=== PATIENT | female | born 1955 | race Caucasian/White ===

== ENCOUNTER 2019-02-02 06:28 | Day surgery (SDC) | payer MEDICARE, MEDICAID, SELFPAY ==
[2019-02-02] VITALS (7 sets, daily range): BP systolic 97–128; BP diastolic 46–70; PULSE 68–77; RESP 10–16; TEMP 36.6–37.6; O2SAT 95–97; BMI 37.7
--- NOTE | 2019-02-02 | PATH_ITS ---
[facility] Accession Number: [id number] . 01 Material submitted: . PART A: colon - 2MM CECAL POLYP PART B: body - HYPERPLASTIC POLYP AT 45CM PART C: body - HYPERPLASTIC POLYP AT 35CM . 02 Diagnosis: A. 2 mm Cecal Polyp: Tubular adenoma. . B. Hyperplastic Polyp at 45 cm: Hyperplastic polyp. . C. Hyperplastic Polyp at 35 cm: Hyperplastic polyp. MRV 02/05/2019 1505 Local . 02 Electronically signed: . Peggy Francis MD, Pathologist NPI- [id number] . 01 Gross description: . Part A: 2MM CECAL POLYP: Received in formalin is 1 fragment(s) of thomas, soft tissue measuring 0.1 x 0.01 x 0.01 cm submitted entirely in 1 cassette(s) Part B: HYPERPLASTIC POLYP AT 45CM: Received in formalin is 1 fragment(s) of thomas, soft tissue measuring 0.3 x 0.2 x 0.2 cm submitted entirely in 1 cassette(s) Part C: HYPERPLASTIC POLYP AT 35CM: Received in formalin is 1 fragment(s) of thomas, soft tissue measuring 0.2 x 0.1 x 0.1 cm submitted entirely in 1 cassette(s) /QBJ 02/05/2019 1507 Local . 02 Pathologist provided ICD-10: K63.5, Z12.11 . 02 CPT . 603455, 933342, [id number] Performed at: 01 [facility] [address] [place] [address], [place], [place] [id number] MD Forrest Bass MD Phone: [phone] [facility]formed [facility]: [facility] [address] [place], [place] [id number] MD Nancy Boswell MD Phone: [phone]
[2019-02-02] MEDS: SODIUM CHLORIDE 0.9% 1,000 ML 200 ML IV (06:45)
--- NOTE | 2019-02-02 07:41 | P.HP_ITS ---
History of Present Illness History of Present Illness Date Patient Seen: 02/02/19 Time Patient Seen: 07:41 Chief complaint: [id number] Narrative: This is a 63-year-old woman who is 10 years out from her initial screening colonoscopy. She has a history of gastric bypass, obesity, diabetes, hypertension, and multiple allergies. She denies any personal history of colon polyps, colon cancer, melena, hematochezia, or other related symptoms. She does have significant acid reflux, for which she has been recently evaluated in [place] due to her history of gastric bypass. ROS: Thirteen system review is negative other than as mentioned in scanned in questionnaire and in the HPI. PE: GENERAL: Well groomed and cooperative. Morbidly obese. Appears stated age. Answers questions promptly and appropriately. Vital signs noted. HENT: Normocephalic, atraumatic. Hearing intact. Oral mucosa is pink and moist. EYES: Conjunctiva pink, sclera white, no periorbital swelling. CARDIOVASCULAR: Regular rate. No pedal edema. RESPIRATORY: Normal respiratory rate, breathing comfortably on room air. GASTROINTESTINAL: Abdomen soft and non-distended GENITALURINARY: No flank tenderness. MUSCULOSKELETAL: Equal tone and mass bilaterally. SKIN: Warm, dry, soft, appropriate color for ethnicity. No other lesions, rashes, or wounds. NEURO: Alert and Oriented X 3. No gross sensory deficits, or cognitive issues. PSYCH: Appropriate affect and mood. Patient History Medical History (Updated 02/02/19 @ 07:44 by Gail Cabrera MD) Anemia (Chronic) Anxiety (Chronic) Asthma (Chronic) Chronic sinusitis (Chronic) COPD (chronic obstructive pulmonary disease) (Chronic) Diabetes (Chronic) Hiatal hernia (Chronic) Hx of simple renal cyst (Resolved) Hyperlipidemia (Chronic) Hyperthyroidism (Chronic) PTSD (post-traumatic stress disorder) (Chronic) Sleep apnea (Chronic) Surgical History (Updated 10/16/18 @ 14:12 by Sara Shelley RN) Hx of gastric bypass (Resolved) Hx of left knee surgery (Resolved) Family & Social History Tobacco & Substance use: Smoking Status Never smoker alcohol intake never Meds Home Medications and Allergies Home Medications Medication Instructions Recorded Confirmed Type clobetasol 0.05 % TOPICAL BID #30 gm 12/08/11 07/13/18 Rx losartan 100 mg PO QDAY #0 12/08/11 07/13/18 History valacyclovir 1,000 mg PO BID #0 12/08/11 07/13/18 History mupirocin 2 % TOPICAL TID #22 gm 12/15/11 07/13/18 Rx gemfibrozil 600 mg PO BID #180 02/07/12 07/13/18 Rx insulin glargine [Lantus Solostar 58 unit SQ QHS #90 ml 02/07/12 07/13/18 Rx U-100 Insulin] methylphenidate HCl 40 mg PO Q DAY #0 02/07/12 07/13/18 History doxepin 10 - 20 mg PO HS 60 Days #0 06/23/12 07/13/18 Rx CLOTRIMAZOLE 1% (LOTRIMIN) 1 % TOPICAL PRN #30 gm 06/26/12 07/13/18 History Fluoxetine Hydrochloride (PROZAC) 40 mg PO QDAY #0 06/26/12 07/13/18 History gabapentin [Neurontin] 300 mg PO HS #0 06/26/12 07/13/18 History insulin aspart U-100 [Novolog 12 u SQ QIDACHS #0 06/26/12 07/13/18 History Flexpen U-100 Insulin] nortriptyline [Pamelor] 50 mg PO QDAYP #0 06/26/12 07/13/18 History sucralfate [Carafate] 1 gm PO PRN #0 06/26/12 07/13/18 History CA PANTOTHENATE/FOLIC ACID/VIT 1 tab PO QDAY #0 07/17/12 07/13/18 History (MULTIVITAMIN) ERGOCALCIFEROL (VITAMIN D) 8,000 units PO QDAY #0 07/17/12 07/13/18 History Allergies Allergy/AdvReac Type Severity Reaction Status Date / Time sulfamethoxazole Allergy Intermediate HIVES Unverified 10/16/18 13:57 [From Bactrim] trimethoprim [From Bactrim] Allergy Intermediate HIVES Unverified 10/16/18 13:57 azithromycin [From Zithromax] Allergy Unknown Verified 10/16/18 13:57 erythromycin base Allergy Unknown Verified 10/16/18 13:57 codeine AdvReac Mild N/V Unverified 10/16/18 13:57 hydrocodone AdvReac Mild N/V Unverified 10/16/18 13:57 Macrolide Antibiotics AdvReac Mild STOMACH Unverified 10/16/18 13:57 PAIN, CRAMPING Assessment & Plan Assessment and plan (1) At average risk for colon cancer: Current visit: Yes Status: Acute (2) Colon cancer screening: Current visit: Yes Status: Acute Assessment & Plan narrative: Risks and benefits of colonoscopy were discussed with the patient. Risk of bleeding, perforation, need for additional procedures, risks of anesthesia were discussed. The patient desires to proceed with her screening colonoscopy and possible polypectomy. Time Spent With Patient Time with patient: 15-24 minutes Quality VTE Deep Vein Thrombosis/Pulmonary Embolism Present on Admission: No
[2019-02-02] MEDS: ONDANSETRON 4 MG/2 ML INJ IV (08:39)
[2019-02-02] MEDS: MIDAZOLAM 5 MG/5 ML VIAL IV (08:40)
[2019-02-02] MEDS: fentaNYL 250 MCG/5 ML INJ IV (08:41)
--- NOTE | 2019-02-02 09:00 | PM.OP.ENDO ---
Operative Date/Time/Diagnoses Date of procedure: 02/02/19 Time of procedure: 09:00 Pre-op diagnosis: Average risk for colon cancer Procedure & Clinicians Study performed: Screening colonoscopy and polypectomy with cold forceps and hot snare Same procedure as scheduled: Yes Indications: 10 years since last screening colonoscopy Surgeon: Gail Cabrera Procedure Notes SCOAP/Timeout: performed Procedure in detail: The patient was brought to the room and placed in left lateral decubitus position with all bony prominences padded. A time-out was performed and then the patient was given procedural sedation starting with 4 mg of Versed and 100 mcg of fentanyl. Vitals were monitored throughout the procedure and remained stable. Once adequately sedated the procedure was begun. A rectal exam was performed revealing no abnormalities. The colonoscope was then introduced to the rectum and advanced to the cecum in the usual fashion. The colon was extremely tortuous and it took at least 30 minutes to get through the redundant folds of sigmoid and advanced all the way to the cecum. The cecum was identified by the appendiceal orifice, the mucosal try fold, and the ileocecal valve. The scope was then retracted while rotating side to side and examining each mucosal fold. Four polyps were identified and removed during the procedure a 2 mm polyp in the cecum, a flat hyperplastic polyp at 45 cm, a flat hyperplastic polyp at 35 cm removed with cold forceps, and a 5 mm polyp at 25 cm removed with hot snare. The last polyp was not retrieved after multiple attempts to locate it. At the conclusion procedure retroflexion was performed and small grade 1-2 internal hemorrhoids without stigmata of bleeding were seen. The scope was then withdrawn from the rectum the procedure was concluded. The patient tolerated the procedure well was transferred to the PACU in stable condition. Scope withdrawal time: 22 Sedation minutes: 57 Findings: internal hemorrhoids and polyp Specimen(s): other (2mm polyp at cecum, hyperplastic polyp at 45 cm, hyperplastic polyp at 35 cm were sent. 5 mm polyp at 25 cm (was not retrieved)) Post-procedure Recommendations: Colonscopy in 5 years Follow up: as needed Disposition: PACU
== END 2019-02-02 09:45 | disposition home or self-care (01) ==
PROVIDERS: PCP Internal Medicine; Visit Provider Surgery
PROC: 0DJD8ZZ Inspection of Lower Intestinal Tract, Via Natural or Artificial Opening Endoscopic (ICD-10-PCS; CPT 45378; principal; 2019-02-02 07:45)
DX: Z12.11 Encounter for screening for malignant neoplasm of colon (principal); E11.9 Type 2 diabetes mellitus without complications; I10 Essential (primary) hypertension; E66.9 Obesity, unspecified; K21.9 Gastro-esophageal reflux disease without esophagitis; K64.0 First degree hemorrhoids; D12.0 Benign neoplasm of cecum; D12.6 Benign neoplasm of colon, unspecified
CPT/HCPCS: 45385; 45380; 99152; 99153; J2250; J2405; J3010

== ENCOUNTER → 2022-10-27 15:28 | Outpatient (CLI) | payer MEDICARE, MEDICAID, SELFPAY ==
--- NOTE | 2022-10-27 | DI.MRI.S_ITS ---
PROCEDURE: MR LUMBAR SPINE WO CON INDICATIONS: AXONAL SENSORIMOTOR NEUROPATHY/LOW BACK PAIN TECHNIQUE: Noncontrast sagittal T1 spin echo and T2 fast echo, sagittal STIR, and T2 fast spin echo through the lumbar spine. In cases with scoliosis, additional coronal T2 fast spin echo may be performed. COMPARISON: None. FINDINGS: Image quality: Excellent. Alignment and Curvature: There is normal bony alignment. Bone Marrow: Marrow is of normal overall signal. No acute vertebral body compression fractures. Spinal Cord: Conus medullaris terminates at the L1 level. Visualized cord demonstrates normal signal and size. Paraspinous Soft Tissues: Multiple bilateral renal cysts, greater on the left. Most appear simple some appear more complex or appear to have a solid component. T12-L1: Normal appearance. L1-L2: Normal appearance. L2-L3: Normal appearance. L3-L4: No central canal or neural foraminal stenosis. Facet arthropathy and thickening ligamentum flavum. Minimal posterior disc bulge. L4-L5: Minimal posterior disc bulge. Facet arthropathy and thickening of ligamentum flavum. Mild central canal stenosis. No neural foraminal stenosis. L5-S1: No central canal or neural foraminal stenosis. The thecal sac terminates just above the L5-S1 level. IMPRESSION: 1. Mild degenerative changes of the lumbar spine with mild central canal stenosis at L4-5. Otherwise, no significant central canal or neural foraminal stenosis. 2. Multiple bilateral renal cysts, more on the left. Most appear simple while at several cysts in the left kidney appear to have a solid component. Further evaluation with ultrasound or dedicated imaging of the kidney is recommended. Dictated by: Kole Hutchison M.D. on 10/27/2022 at 17:00 Approved by: Kole Hutchison M.D. on 10/27/2022 at 17:04
== END ==
PROVIDERS: PCP Internal Medicine; Referring Provider Internal Medicine; Visit Provider Internal Medicine
DX: M47.816 Spondylosis without myelopathy or radiculopathy, lumbar region (principal); M48.061 Spinal stenosis, lumbar region without neurogenic claudication; N28.1 Cyst of kidney, acquired; M54.50 Low back pain, unspecified; G62.89 Other specified polyneuropathies
CPT/HCPCS: 72148

== ENCOUNTER → 2022-11-02 11:04 | Outpatient (CLI) | payer MEDICARE, MEDICAID, SELFPAY ==
--- NOTE | 2022-11-02 | DI.US.S_ITS ---
PROCEDURE: US RENAL COMPLETE INDICATIONS: BILATERAL RENAL CYSTS TECHNIQUE: Real-time scanning was performed of the kidneys and bladder, with image documentation. COMPARISON: [facility], CT, CT ABDOMEN RENAL PROTOCOL, 12/12/2019, 14:52. [facility], US, US RENAL LIMITED, 05/29/2019, 14:46. FINDINGS: Kidneys: Right kidney measures 13 centimeters. The left kidney measures 14 centimeters. No hydronephrosis bilaterally. Normal cortical thicknesses bilaterally. Numerous cystic lesions are present, measuring up to 2 x 1.5 centimeters in the upper pole of the right kidney and 2.7 x 1.8 centimeters in the left kidney. The larger lesions in the left kidney are probably complex/hemorrhagic cystic lesion seen on prior CT renal protocol, measuring up to 5.7 x 4.7 centimeters and 3.5 x 3.4 centimeters. Bladder: Postvoid residual is 36.4 cc. Both ureteral jets are seen. Miscellaneous: No free pelvic fluid. IMPRESSION: Numerous suspected bilateral renal cystic lesions with internal complexity, the larger ones located in the left kidney. These are probably the same lesions as seen on CT renal mass protocol from 12/12/2019, however, cross modality comparison is difficult and some of the lesions may have enlarged. Consider repeat CT or MRI renal mass protocol for surveillance. Dictated by: Ladarius Arnold M.D. on 11/02/2022 at 13:39 Approved by: Ladarius Arnold M.D. on 11/02/2022 at 13:45
== END ==
PROVIDERS: PCP Internal Medicine; Referring Provider Internal Medicine; Visit Provider Internal Medicine
DX: N28.1 Cyst of kidney, acquired (principal)
CPT/HCPCS: 76770

== ENCOUNTER → 2022-11-29 10:20 | Outpatient (CLI) | payer MEDICARE, MEDICAID, SELFPAY ==
--- NOTE | 2022-11-29 | DI.CT.S_ITS ---
PROCEDURE: CT ABDOMEN RENAL PROTOCOL INDICATIONS: CYST OF KIDNEY TECHNIQUE: Optional 5 mm thick noncontrast images acquired from the diaphragm to the iliac crests. After the administration of intravenous contrast, 5 mm thick images again acquired from the diaphragm to the iliac crests in the arterial and urographic phases. 5 mm thick coronal and sagittal reformats were then acquired. For radiation dose reduction, the following was used: automated exposure control, adjustment of mA and/or kV according to patient size. COMPARISON: [facility], CT, CT ABDOMEN RENAL PROTOCOL, 12/12/2019, 14:52. FINDINGS: Lower thorax: The lung bases are clear. Heart size normal. No hiatal hernia. Liver: The liver is diffusely decreased in attenuation without focal mass lesion. Biliary system: Cholecystectomy. No intra or extrahepatic bile duct dilation. Pancreas: Unremarkable without mass or inflammation evident. Spleen: Normal in size and density. Small splenules noted in hilum. Adrenals: Normal morphology and density. Urinary system: Bilateral simple appearing renal cysts, largest is on the left measuring 5.7 cm. No evidence hydronephrosis or calculus. Gastrointestinal system: The bowel is unremarkable without evidence of bowel obstruction or inflammation. The stomach appears unremarkable. Prior gastric surgery. Peritoneal spaces: No mesenteric or retroperitoneal adenopathy. No free air. No free fluid. Vasculature: Aorta IVC unremarkable Abdominal wall: Abdominal wall intact without evidence of ventral or inguinal hernias. Musculoskeletal: Normal bone mineralization. No acute fractures. IMPRESSION: 1. Bilateral simple renal cysts, largest on the left measures 5.4 cm. No change from the prior. No calculus or hydronephrosis 2. Incidental prior gastric surgery, cholecystectomy, hepatic fatty infiltration Approved by: Enmanuel Sánchez M.D. on 11/29/2022 at 17:35
[2022-11-29 11:10] LABS: Alanine Aminotransferase 24 IU/L (<35); Albumin 4.3 g/dL (3.5-5.0); Albumin Globulin Ratio 1.2 (1.0-2.8); Alkaline Phosphatase 160 U/L (38-126); Aspartate Aminotransferase 29 IU/L (14-36); BUN Creatinine Ratio 30.4 (6-22); Bilirubin Total 1.4 mg/dL (0.2-1.3); Blood Urea Nitrogen 21 mg/dL (7-17); Calcium 9.8 mg/dL (8.4-10.2); Carbon Dioxide 27 mmol/L (22-32); Chloride 102 mmol/L (98-107); Estimated Glomerular Filt Rate > 60 mL/min (>60); Globulin 3.5 g/dL (1.7-4.1); Glucose 143 mg/dL (80-110); HEMOLYSIS < 15 (0-50); Potassium 4.1 mmol/L (3.4-5.1); Sodium 137 mmol/L (137-145); Total Protein 7.8 g/dL (6.3-8.2)
[2022-11-29 11:31] LABS: Hemoglobin A1C% w Est Avg Glu 5.7 % (4.0-6.0)
== END ==
PROVIDERS: PCP Internal Medicine; Referring Provider Internal Medicine Endocrinology, Diabetes & Metabolism; Visit Provider Internal Medicine Endocrinology, Diabetes & Metabolism
DX: E11.65 Type 2 diabetes mellitus with hyperglycemia (principal); N28.1 Cyst of kidney, acquired; K76.0 Fatty (change of) liver, not elsewhere classified; Z79.4 Long term (current) use of insulin; Z90.49 Acquired absence of other specified parts of digestive tract
CPT/HCPCS: 36415; 74170; 80053; 83036; Q9967